=== PATIENT | female | born 1990 | race American Indian/Alaskan Native ===

== ENCOUNTER 2016-12-26 09:42 | Emergency (ER) | payer SELFPAY ==
--- NOTE | 2016-12-26 09:52 | Emergency Department Report ---
Chief Complaint: Urogenital-Female Stated Complaint: POSS UTI Time Seen by Provider: 12/26/16 09:49 - HPI History of Present Illness: PT c/o urinary frequency and dysuria x 4 days. - ROS Review of Systems: -fevers -chill - n/v - vaginal discharge - Exam Physical Exam: PT looks well, non toxic. no cva tenderness fernando MSE screening note: Focused history and physical exam performed. Due to findings the following was ordered: labs ED Disposition for MSE Condition: Stable
[2016-12-26 10:20] VITALS: BP 126/85
[2016-12-26 10:35] LABS: Bacteria,Urine 2+ /HPF (Negative); Bilirubin,Urine NEG (Negative); Blood,Urine MOD (Negative); Ketones,Urine NEG (Negative); Leukocyte Esterase,Urine LG (Negative); Mucus,Urine FEW /HPF; Nitrite,Urine NEG (Negative); Protein,Urine <15 mg/dL mg/dL (Negative); Urobilinogen,Urine < 2.0 mg/dL (<2.0)
--- NOTE | 2016-12-26 18:26 | Emergency Department Report ---
Entered by BRIE LOPEZ, acting as scribe for RUBY HARRINGTON NP. ED Female HPI - General Chief complaint: Urogenital-Female Stated complaint: POSS UTI Time Seen by Provider: 12/26/16 09:49 Source: patient Mode of arrival: Ambulatory Limitations: No Limitations - History of Present Illness Initial comments: This is a 26 y/o female nontoxic, well nourished in appearance, no acute signs of distress presents with urgency and dysuria that started 4 days ago. Sx includes feeling of inability to empty bladder but pt denies fever, back pain, pelvic pain, chills, n/v, vaginal discharge, VIVAR, chest pain, SOB, numbness or tingling. Pt states she took antibiotics for UTI 3 years ago. Pt has no concerns of STD exposure. MD Complaint: dysuria, other (urgency) -: days(s) (4) Severity: mild Severity scale (0 -10): 4 Quality: burning Consistency: constant Improves with: none Worsens with: urination Are you Now?: No Last Menstrual Period: 12/10/16 EDC: 09/16/17 Associated Symptoms: denies other symptoms, dysuria. denies: vaginal discharge , vaginal bleeding, abdominal pain, nausea/vomiting, fever/chills, headaches, loss of appetite, hematuria, rash, seizure, shortness of breath, syncope, weakness - Related Data Sexually active: No (as per pt) Home Medications Medication Instructions Recorded Confirmed Last Taken risperiDONE mg PO QHS 08/22/14 08/22/14 08/21/14 21:00 Previous Rx's Medication Instructions Recorded Last Taken Type medroxyPROGESTERone ACETATE 10 mg PO QDAY #10 tablet 08/22/14 Unknown Rx [Provera] Gentamicin 0.3% Ophth Soln 2 drops OP Q4H #1 bottle 03/22/15 Unknown Rx Ibuprofen [Motrin] 600 mg PO Q8H PRN #30 tablet 03/22/15 Unknown Rx Sulfamethoxazole/Trimethoprim 1 each PO BID #6 tablet 03/22/15 Unknown Rx [Bactrim DS TAB] Nitrofurantoin Claiborne/M-Cryst 100 mg PO Q12HR #10 capsule 12/26/16 Unknown Rx [Macrobid CAP] Allergies Allergy/AdvReac Type Severity Reaction Status Date / Time No Known Allergies Allergy Verified 08/22/14 12:04 ED Review of Systems Comment: All other systems reviewed and negative Constitutional: denies: chills, fever Eyes: denies: eye pain, eye discharge, vision change ENT: denies: ear pain, throat pain Respiratory: denies: cough, shortness of breath Cardiovascular: denies: chest pain Endocrine: no symptoms reported Gastrointestinal: denies: abdominal pain, nausea, vomiting, diarrhea Genitourinary: urgency, dysuria, hematuria, other (feeling of inability to empty bladder) Musculoskeletal: denies: back pain, joint swelling, arthralgia Skin: denies: rash, lesions Neurological: denies: headache, weakness, numbness ED Past Medical Hx - Past Medical History Previous Medical History?: Yes Hx Psychiatric Treatment: Yes (Hospitalized at [facility] in 2012.) Additional medical history: BIPOLAR - Surgical History Past Surgical History?: No - Social History Smoking Status: Current Some Day Smoker Substance Use Type: Alcohol - Medications Home Medications: Home Medications Medication Instructions Recorded Confirmed Last Taken Type medroxyPROGESTERone ACETATE 10 mg PO QDAY #10 tablet 08/22/14 Unknown Rx [Provera] risperiDONE mg PO QHS 08/22/14 08/22/14 08/21/14 21:00 History Gentamicin 0.3% Ophth Soln 2 drops OP Q4H #1 bottle 03/22/15 Unknown Rx Ibuprofen [Motrin] 600 mg PO Q8H PRN #30 tablet 03/22/15 Unknown Rx Sulfamethoxazole/Trimethoprim 1 each PO BID #6 tablet 03/22/15 Unknown Rx [Bactrim DS TAB] Nitrofurantoin Claiborne/M-Cryst 100 mg PO Q12HR #10 capsule 12/26/16 Unknown Rx [Macrobid CAP] ED Physical Exam - General Limitations: No Limitations General appearance: alert, in no apparent distress - Head Head exam: Present: atraumatic, normocephalic - Eye Eye exam: Present: normal appearance, PERRL, EOMI Pupils: Present: normal accommodation - ENT ENT exam: Present: normal exam, normal orophraynx, mucous membranes moist, TM's normal bilaterally, normal external ear exam - Neck Neck exam: Present: normal inspection, full ROM. Absent: tenderness, meningismus, lymphadenopathy, thyromegaly - Respiratory Respiratory exam: Present: normal lung sounds bilaterally. Absent: respiratory distress, wheezes, rales, rhonchi, stridor - Cardiovascular Cardiovascular Exam: Present: regular rate, normal rhythm, normal heart sounds. Absent: systolic murmur, diastolic murmur, rubs, gallop - GI/Abdominal GI/Abdominal exam: Present: soft, normal bowel sounds. Absent: distended, tenderness, guarding, rebound, diminished bowel sounds, mass, bruit - Extremities Exam Extremities exam: Present: normal inspection, full ROM, normal capillary refill. Absent: tenderness, pedal edema, joint swelling, calf tenderness - Back Exam Back exam: Present: normal inspection, full ROM. Absent: tenderness, CVA tenderness (R), CVA tenderness (L), muscle spasm, paraspinal tenderness, vertebral tenderness, rash noted - Neurological Exam Neurological exam: Present: alert, oriented X3, CN II-XII intact, normal gait, reflexes normal. Absent: motor sensory deficit - Psychiatric Psychiatric exam: Present: normal affect, normal mood - Skin Skin exam: Present: warm, dry, intact, normal color. Absent: rash ED Course Vital Signs 12/26/16 12/26/16 12/26/16 09:49 10:19 10:20 Temperature 98.3 F 98.1 F Pulse Rate 83 78 Respiratory 16 16 16 Rate Blood Pressure 131/90 Blood Pressure 126/85 [Left] O2 Sat by Pulse 100 100 100 Oximetry ED Medical Decision Making - Medical Decision Making Ed course: This is a 26-year-old female that presents with UTI 1- after my physical exam, UA and test has been obtained. UA indicates elevated WBCs with moderate signs of blood. 2- patient received Macrobid for 5 days and was instructed to finish full course of antibiotics as as prescribed. 3- at time time of discharge, the patient does not seem toxic or ill in appearance. No acute signs of distress noted. Patient agrees to discharge treatment plan of care. No further questions noted by the patient. 4- patient was notified to follow-up with her primary care doctor in 3-5 days or if symptoms worsen and continue report back to emergency room as soon as possible. ED Disposition Disposition: DC-01 TO HOME OR SELFCARE Is pt being admited?: No Does the pt Need Aspirin: No Condition: Stable Instructions: Nitrofurantoin Macrocrystals (By mouth), Urinary Tract Infection in Women (ED), Dysuria (ED) Additional Instructions: follow-up with her primary care doctor in 3-5 days or if symptoms worsen and continue report back to emergency room as soon as possible. Finish full courses of antibiotics as prescribed. Prescriptions: Nitrofurantoin Claiborne/M-Cryst [Macrobid CAP] 100 mg PO Q12HR #10 capsule Referrals: PRIMARY CARE, [Primary Care Provider] - 3-5 Days [facility] [Outside] - 3-5 Days [facility] [Outside] - 3-5 Days Forms: Work/School Release Form(ED) This documentation as recorded by the JESSICA purcell RYAN,accurately reflects the service I personally performed and the decisions made by me,RUBY HARRINGTON, BUILDING [employer]STRUCTION IRONWORKER.
== END 2016-12-26 11:14 | disposition home or self-care (01) ==
LOC: ED 09:42
DX: R30.0 Dysuria (principal); F31.9 Bipolar disorder, unspecified; Z72.0 Tobacco use
CPT/HCPCS: 81001; 81025; 99283

== ENCOUNTER 2017-03-06 11:49 | Emergency (ER) | payer MEDICAID ==
[2017-03-06 12:30] VITALS: BP 131/95
--- NOTE | 2017-03-06 21:44 | Emergency Department Report ---
Entered by ERNESTO FONSECA, acting as scribe for RUBY HARRINGTON NP. ED Neck Pain/Injury HPI - General Chief Complaint: Neck Pain/Injury Stated Complaint: LEFT EAR/NECK PAIN Time Seen by Provider: 03/06/17 12:42 Mode of arrival: Ambulatory Limitations: No Limitations - History of Present Illness Initial Comments: This is a 26 y/o female that is with a PMHx of bipolar disorder presents to the ED c/o lateral left neck pain that began 4 days ago. Rates pain a 7/10 in severity, which she describes as aching in quality. Aggravated with swallowing and movement, and alleviated with nothing. Associated sore throat, but she denies hearing loss, fever, chills, chest pain, SOB, VIVAR or dizziness, numbness, tingling. LMP 01/09/2017. Patient states she is following up with an OB to find out how many weeks she is today. Denies any abdominal pain, cramping, vaginal bleeding, and vaginal discharge. NKDA. HAHN Complaint: neck pain Onset/Timin -: days(s) Place: home Severity: moderate Severity scale (0 -10): 7 Quality: aching Consistency: constant Improves With: immobilization Worsens With: movement of neck Context: unknown Associated Symptoms: none, other (sore throat). denies: headache, fever, numbness, tingling, weakness, vertigo, difficulty walking, swollen glands, difficulty swallowing, nausea, vomiting Treatments Prior to Arrival: none - Related Data Home Medications Medication Instructions Recorded Confirmed Last Taken risperiDONE mg PO QHS 08/22/14 08/22/14 08/21/14 21:00 Previous Rx's Medication Instructions Recorded Last Taken Type medroxyPROGESTERone ACETATE 10 mg PO QDAY #10 tablet 08/22/14 Unknown Rx [Provera] Gentamicin 0.3% Ophth Soln 2 drops OP Q4H #1 bottle 03/22/15 Unknown Rx Ibuprofen [Motrin] 600 mg PO Q8H PRN #30 tablet 03/22/15 Unknown Rx Sulfamethoxazole/Trimethoprim 1 each PO BID #6 tablet 03/22/15 Unknown Rx [Bactrim DS TAB] Nitrofurantoin Bowman/M-Cryst 100 mg PO Q12HR #10 capsule 12/26/16 Unknown Rx [Macrobid CAP] Amoxicillin 500 mg PO BID #20 capsule 03/06/17 Unknown Rx Allergies Allergy/AdvReac Type Severity Reaction Status Date / Time No Known Allergies Allergy Verified 08/22/14 12:04 ED Review of Systems Comment: All other systems reviewed and negative Constitutional: denies: chills, diaphoresis, fever, weakness Eyes: denies: eye pain, eye discharge, vision change ENT: throat pain. denies: ear pain, dental pain, hearing loss, epistaxis, congestion Respiratory: denies: cough, orthopnea, shortness of breath, SOB with exertion, SOB at rest, stridor, wheezing Cardiovascular: denies: chest pain, palpitations, dyspnea on exertion, orthopnea , edema, syncope, paroxysmal nocturnal dyspnea Endocrine: no symptoms reported Gastrointestinal: denies: abdominal pain, nausea, vomiting, diarrhea Genitourinary: denies: urgency, dysuria, frequency, hematuria, discharge, abnormal menses, dyspareunia Musculoskeletal: arthralgia (lateral left neck pain). denies: back pain, joint swelling, myalgia Skin: denies: rash, lesions Neurological: denies: headache, weakness, numbness, paresthesias Psychiatric: denies: anxiety, depression Hematological/Lymphatic: denies: easy bleeding, easy bruising ED Past Medical Hx - Past Medical History Previous Medical History?: Yes Hx Psychiatric Treatment: Yes (Hospitalized at [facility] in 2012.) Additional medical history: BIPOLAR - Surgical History Past Surgical History?: No - Family History Family history: no significant - Social History Smoking Status: Never Smoker Substance Use Type: None - Medications Home Medications: Home Medications Medication Instructions Recorded Confirmed Last Taken Type medroxyPROGESTERone ACETATE 10 mg PO QDAY #10 tablet 08/22/14 Unknown Rx [Provera] risperiDONE mg PO QHS 08/22/14 08/22/14 08/21/14 21:00 History Gentamicin 0.3% Ophth Soln 2 drops OP Q4H #1 bottle 03/22/15 Unknown Rx Ibuprofen [Motrin] 600 mg PO Q8H PRN #30 tablet 03/22/15 Unknown Rx Sulfamethoxazole/Trimethoprim 1 each PO BID #6 tablet 03/22/15 Unknown Rx [Bactrim DS TAB] Nitrofurantoin Bowman/M-Cryst 100 mg PO Q12HR #10 capsule 12/26/16 Unknown Rx [Macrobid CAP] Amoxicillin 500 mg PO BID #20 capsule 03/06/17 Unknown Rx ED Physical Exam - General Limitations: No Limitations General appearance: alert, in no apparent distress - Head Head exam: Present: atraumatic, normocephalic - Eye Eye exam: Present: normal appearance, PERRL, EOMI. Absent: scleral icterus, conjunctival injection, nystagmus, periorbital swelling, periorbital tenderness Pupils: Present: normal accommodation - ENT ENT exam: Present: mucous membranes moist, TM's normal bilaterally, normal external ear exam, other (no left mastoid tenderness present). Absent: normal exam, normal orophraynx - Expanded ENT Exam Expanded Ear exam: Present: normal external inspection Mouth exam: Present: normal external inspection, tongue normal. Absent: drooling, trismus, muffled voice, tongue elevation, laceration Teeth exam: Present: normal inspection Throat exam: Positive: normal inspection, tonsillomegaly (2+), tonsillar exudate (left sided), other (tonsillar lymph node on the left side. Uvula midline. No abscess or swelling tonsil noted. ). Negative: tonsillar erythema, R peritonsillar mass, L peritonsillar mass - Neck Neck exam: Present: normal inspection, full ROM. Absent: tenderness, meningismus, lymphadenopathy, thyromegaly - Expanded Neck Exam Expanded Neck exam: Absent: tenderness, midline deformity, anterior neck swelling, thyroid mass, carotid bruit, tracheal deviation - Respiratory Respiratory exam: Present: normal lung sounds bilaterally. Absent: respiratory distress, wheezes, rales, rhonchi, stridor, accessory muscle use, decreased breath sounds - Cardiovascular Cardiovascular Exam: Present: regular rate, normal rhythm, normal heart sounds. Absent: systolic murmur, diastolic murmur, rubs, gallop - GI/Abdominal GI/Abdominal exam: Present: soft, normal bowel sounds. Absent: distended - Rectal Rectal exam: Present: deferred - Extremities Exam Extremities exam: Present: normal inspection, full ROM, normal capillary refill. Absent: tenderness, pedal edema, joint swelling, calf tenderness - Back Exam Back exam: Present: normal inspection, full ROM. Absent: tenderness, CVA tenderness (R), CVA tenderness (L), muscle spasm, paraspinal tenderness, vertebral tenderness, rash noted - Neurological Exam Neurological exam: Present: alert, oriented X3, CN II-XII intact, normal gait, reflexes normal. Absent: motor sensory deficit - Psychiatric Psychiatric exam: Present: normal affect, normal mood - Skin Skin exam: Present: warm, dry, intact. Absent: rash, cyanosis, abrasion, ecchymosis ED Course Vital Signs 03/06/17 12:28 Temperature 98.9 F Pulse Rate 85 Respiratory 16 Rate Blood Pressure 131/95 O2 Sat by Pulse 100 Oximetry - Reevaluation(s) Reevaluation #1: 03/06/17 13:40 Patient is speaking in full sentences with no signs of distress noted. ED Disposition Clinical Impression: Tonsillitis with exudate Disposition: - TO HOME OR SELFCARE Is pt being admited?: No Does the pt Need Aspirin: No Condition: Stable Instructions: Tonsillitis (ED), Amoxicillin (By mouth) Additional Instructions: Follow-up with a primary care doctor in 3-5 days or if symptoms worsen return to the emergency department as soon as possible Prescriptions: Amoxicillin 500 mg PO BID #20 capsule Referrals: PRIMARY CAREMD [Primary Care Provider] - 3-5 Days SONY MCCARTHY MD [Staff Physician] - 3-5 Days [facility] [Outside] - 3-5 Days [facility] [Outside] - 3-5 Days Forms: Work/School Release Form(ED) This documentation as recorded by the MARIAN purcell JASMINE,accurately reflects the service I personally performed and the decisions made by me,RUBY HARRINGTON, YUDITH.
== END 2017-03-06 13:52 | disposition home or self-care (01) ==
LOC: ED 11:49
DX: J03.90 Acute tonsillitis, unspecified (principal); F31.9 Bipolar disorder, unspecified
CPT/HCPCS: 99281

== ENCOUNTER 2017-03-21 19:01 | Emergency (ER) | payer MEDICAID ==
[2017-03-21 19:14] VITALS: BP 122/85
[2017-03-21 19:27] LABS: Hematocrit 35.9 % (30.3-42.9); Hemoglobin 12.1 gm/dl (10.1-14.3); Mean Corpuscular HGB Conc 34 % (30-34); Mean Corpuscular Hemoglobin 30 pg (28-32); Mean Corpuscular Volume 88 fl (79-97); Platelet Count 268 K/mm3 (140-440); White Blood Count 11.5 K/mm3 (4.5-11.0)
[2017-03-21 19:44] LABS: Anion Gap 18 mmol/L; BUN/Creatinine Ratio 18.33; Blood Urea Nitrogen 11 mg/dL (7-17); Calcium 9.2 mg/dL (8.4-10.2); Carbon Dioxide 22 mmol/L (22-30); Chloride 99.5 mmol/L (98-107); Glucose 88 mg/dL (65-100); Potassium 3.9 mmol/L (3.6-5.0); Sodium 136 mmol/L (137-145)
[2017-03-21 21:12] LABS: Bilirubin,Urine NEG (Negative); Blood,Urine NEG (Negative); Ketones,Urine 20 mg/dL (Negative); Leukocyte Esterase,Urine TR (Negative); Mucus,Urine FEW /HPF; Nitrite,Urine NEG (Negative); Protein,Urine <15 mg/dL mg/dL (Negative); Sperm,Urine FEW /HPF (NP); Urobilinogen,Urine < 2.0 mg/dL (<2.0)
--- NOTE | 2017-03-21 22:12 | Ultrasound Report ---
FINAL REPORT PROCEDURE: US OB LESS THAN 14 WEEKS FETUS TECHNIQUE: Real-time transabdominal l sonography of the uterus, placenta, amniotic fluid, adnexa, and fetus was performed with image documentation. Measurements were obtained to determine age/size. M-mode Doppler was used to document heartbeat. HISTORY: vag bleed/pain with COMPARISON: No prior studies are available for comparison. FINDINGS: CRL: 71mm, which corresponds to a gestational age of: 13weeks, 2 days. Yolk Sac: Normal. Embryonic Cardiac Activity: 162 beats per minute Gestational Sac: Normal. Right Ovary: Not identified. Obscured by bowel gas. Left Ovary: Normal. Estimated delivery date: 09/24/2017 Comment: Complete anatomic survey at 18-20 weeks suggested. IMPRESSION: 1. Single living intrauterine gestation at approximately 13 weeks and 2 days 2. EDC by US 09/24/2017.
--- NOTE | 2017-03-21 22:12 | Ultrasound Report ---
FINAL REPORT PROCEDURE: US OB TRANSVAGINAL TECHNIQUE: Real-time transvaginal sonography of the uterus, placenta, amniotic fluid, adnexa, and fetus was performed with image documentation. Measurements were obtained to determine age/size. M-mode Doppler was used to document heartbeat. CPT 15143 HISTORY: vag bleed/pain with COMPARISON: No prior studies are available for comparison. FINDINGS: CRL: 71mm, which corresponds to a gestational age of: 13weeks, 2 days. Yolk Sac: Normal. Embryonic Cardiac Activity: 162 beats per minute Gestational Sac: Normal. Right Ovary: Not identified. Obscured by bowel gas. Left Ovary: Normal. Estimated delivery date: 09/24/2017 Comment: Complete anatomic survey at 18-20 weeks suggested. IMPRESSION: 1. Single living intrauterine gestation at approximately 13 weeks and 2 days 2. EDC by US 09/24/2017.
--- NOTE | 2017-03-24 00:44 | ED Elopement Review ---
ED Pt Elopement review - Results review Lab results: Laboratory Tests 03/21/17 03/21/17 03/21/17 19:19 19:19 19:19 WBC 11.5 H RBC 4.10 Hgb 12.1 Hct 35.9 MCV 88 MCH 30 MCHC 34 RDW 13.0 L Plt Count 268 Sodium 136 L Potassium 3.9 Chloride 99.5 Carbon Dioxide 22 Anion Gap 18 BUN 11 Creatinine 0.6 L Estimated GFR > 60 BUN/Creatinine Ratio 18.33 Glucose 88 Calcium 9.2 HCG, Quant 34095 H Urine Color Urine Turbidity Urine pH Ur Specific Comfrey Urine Protein Urine Glucose (UA) Urine Ketones Urine Blood Urine Nitrite Urine Bilirubin Urine Urobilinogen Ur Leukocyte Esterase Urine WBC (Auto) Urine RBC (Auto) U Epithel Cells (Auto) Urine Mucus Urine Sperm Blood Type 03/21/17 03/21/17 19:19 20:30 WBC RBC Hgb Hct MCV MCH MCHC RDW Plt Count Sodium Potassium Chloride Carbon Dioxide Anion Gap BUN Creatinine Estimated GFR BUN/Creatinine Ratio Glucose Calcium HCG, Quant Urine Color Yellow Urine Turbidity Clear Urine pH 5.0 Ur Specific Comfrey 1.027 Urine Protein <15 mg/dl Urine Glucose (UA) Neg Urine Ketones 20 Urine Blood Neg Urine Nitrite Neg Urine Bilirubin Neg Urine Urobilinogen < 2.0 Ur Leukocyte Esterase Tr Urine WBC (Auto) 2.0 Urine RBC (Auto) 3.0 U Epithel Cells (Auto) 17.0 H Urine Mucus Few Urine Sperm Few Blood Type A POSITIVE - Call Back decision Pt Call Back Decision: No action required
== END 2017-03-21 23:10 | disposition left against medical advice (07) ==
LOC: ED 19:01
DX: O26.851 Spotting complicating pregnancy, first trimester (principal); Z53.21 Procedure and treatment not carried out due to patient leaving prior to being seen by health care provider
CPT/HCPCS: 36415; 76801; 76817; 80048; 81001; 84702; 85027; 86900; 86901

== ENCOUNTER 2017-03-23 17:24 | Emergency (ER) | payer MEDICAID ==
--- NOTE | 2017-03-23 20:07 | Emergency Department Report ---
ED Female HPI - General Chief complaint: Medical Clearance Stated complaint: 13 WEEKS PREGNENT SPOTTING, VAGINAL IRRITATION Time Seen by Provider: 03/23/17 19:43 Source: patient Mode of arrival: Ambulatory Limitations: No Limitations - History of Present Illness Initial comments: 26-year-old female past medical history bipolar, LMP 01/09/17 presents for request of ultrasound and blood work results and urine results which were done 48 hours ago in the ED here. Patient states she came because she had some vaginal spotting but left before she was able to receive results. Patient denies fevers chills nausea vomiting states she has no dysuria no abdominal pain no flank pain. Denies any vaginal discharge. States that vaginal spotting spontaneously resolve the same day that she came to the ED. Has not had any spotting or lower abdominal crampy pain since then. Patient states she is simply requesting her results and wanted to know if her ultrasound was normal. Patient states she follows up with an [facility] at [facility] in [place]. Radiation: suprapubic Severity: mild Consistency: constant Improves with: none Worsens with: none Are you Now?: No - Related Data Sexually active: Yes Para: 0 Home Medications Medication Instructions Recorded Confirmed Last Taken risperiDONE mg PO QHS 08/22/14 08/22/14 08/21/14 21:00 Previous Rx's Medication Instructions Recorded Last Taken Type medroxyPROGESTERone ACETATE 10 mg PO QDAY #10 tablet 08/22/14 Unknown Rx [Provera] Gentamicin 0.3% Ophth Soln 2 drops OP Q4H #1 bottle 03/22/15 Unknown Rx Ibuprofen [Motrin] 600 mg PO Q8H PRN #30 tablet 03/22/15 Unknown Rx Sulfamethoxazole/Trimethoprim 1 each PO BID #6 tablet 03/22/15 Unknown Rx [Bactrim DS TAB] Nitrofurantoin Angelina/M-Cryst 100 mg PO Q12HR #10 capsule 12/26/16 Unknown Rx [Macrobid CAP] Amoxicillin 500 mg PO BID #20 capsule 03/06/17 Unknown Rx Allergies Allergy/AdvReac Type Severity Reaction Status Date / Time No Known Allergies Allergy Verified 03/23/17 17:33 ED Review of Systems ROS: Stated complaint: 13 WEEKS PREGNENT SPOTTING, VAGINAL IRRITATION Other details as noted in HPI Constitutional: denies: chills, fever Eyes: denies: eye pain, eye discharge, vision change ENT: denies: ear pain, throat pain Respiratory: denies: cough, shortness of breath, wheezing Cardiovascular: denies: chest pain, palpitations Endocrine: no symptoms reported Gastrointestinal: denies: abdominal pain, nausea, diarrhea Genitourinary: denies: urgency, dysuria, discharge Musculoskeletal: denies: back pain, joint swelling, arthralgia Skin: denies: rash, lesions Neurological: denies: headache, weakness, paresthesias Psychiatric: denies: anxiety, depression Hematological/Lymphatic: denies: easy bleeding, easy bruising ED Past Medical Hx - Past Medical History Previous Medical History?: No Hx Psychiatric Treatment: Yes (Hospitalized at [facility] in 2012.) Additional medical history: BIPOLAR - Surgical History Past Surgical History?: No - Social History Smoking Status: Never Smoker Substance Use Type: None - Medications Home Medications: Home Medications Medication Instructions Recorded Confirmed Last Taken Type medroxyPROGESTERone ACETATE 10 mg PO QDAY #10 tablet 08/22/14 Unknown Rx [Provera] risperiDONE mg PO QHS 08/22/14 08/22/14 08/21/14 21:00 History Gentamicin 0.3% Ophth Soln 2 drops OP Q4H #1 bottle 03/22/15 Unknown Rx Ibuprofen [Motrin] 600 mg PO Q8H PRN #30 tablet 03/22/15 Unknown Rx Sulfamethoxazole/Trimethoprim 1 each PO BID #6 tablet 03/22/15 Unknown Rx [Bactrim DS TAB] Nitrofurantoin Angelina/M-Cryst 100 mg PO Q12HR #10 capsule 12/26/16 Unknown Rx [Macrobid CAP] Amoxicillin 500 mg PO BID #20 capsule 03/06/17 Unknown Rx ED Physical Exam - General Limitations: No Limitations General appearance: alert, in no apparent distress - Head Head exam: Present: atraumatic, normocephalic - Eye Eye exam: Present: normal appearance, PERRL, EOMI - ENT ENT exam: Present: mucous membranes moist - Neck Neck exam: Present: normal inspection, full ROM - Respiratory Respiratory exam: Present: normal lung sounds bilaterally. Absent: respiratory distress - Cardiovascular Cardiovascular Exam: Present: regular rate, normal rhythm. Absent: systolic murmur, diastolic murmur, rubs, gallop - GI/Abdominal GI/Abdominal exam: Present: soft, normal bowel sounds - External exam: Present: normal external exam Speculum exam: Present: normal speculum exam Bi-manual exam: Present: normal bi-manual exam - Extremities Exam Extremities exam: Present: normal inspection - Back Exam Back exam: Present: normal inspection - Neurological Exam Neurological exam: Present: alert, oriented X3, CN II-XII intact, normal gait - Psychiatric Psychiatric exam: Present: normal affect, normal mood - Skin Skin exam: Present: warm, dry, intact, normal color. Absent: rash ED Course Vital Signs 03/23/17 17:33 Temperature 98.6 F Pulse Rate 91 H Respiratory 20 Rate Blood Pressure 153/74 O2 Sat by Pulse 100 Oximetry ED Medical Decision Making - Medical Decision Making A/P: , vaginal spotting, threatened miscarriage 1-ultrasound shows live IUP at 13 weeks, UA unremarkable, labs unremarkable, hCG level 35,000s 2-blood type A positive, no need for [place] 3-pt states she has follow-up with [facility] on 03/[facility] 4-patient has no current symptoms no current pain and no current bleeding 5- I explained to patient that intermittent spotting during first trimester is or can be normal or can signal a possible threatened miscarriage. I advised patient to return to the ED for any crampy lower abdominal pain vaginal bleeding or passage of clots/tissue nausea vomiting fever chills. Patient stated she understood my instructions Critical care attestation.: If time is entered above; I have spent that time in minutes in the direct care of this critically ill patient, excluding procedure time. ED Disposition Clinical Impression: Vaginal bleeding in Qualifiers: Weeks of gestation: 13 weeks Qualified Code(s): Z3A.13 - 13 weeks gestation of Disposition: DC-01 TO HOME OR SELFCARE Is pt being admited?: No Does the pt Need Aspirin: No Condition: Stable Instructions: Threatened Miscarriage (ED), (ED) Referrals: [facility] [Provider Group] - 3-5 Days [facility] [Provider Group] - 3-5 Days Forms: Accompanied Note, Work/School Release Form(ED) Time of Disposition: 20:09
[2017-03-23 20:20] VITALS: BP 121/79
== END 2017-03-23 20:20 | disposition home or self-care (01) ==
LOC: ED 17:24
DX: O20.9 Hemorrhage in early pregnancy, unspecified (principal); F31.9 Bipolar disorder, unspecified; Z3A.13 13 weeks gestation of pregnancy
CPT/HCPCS: 99283

== ENCOUNTER 2017-09-21 20:15 | Inpatient (IN) | payer MEDICAID ==
[2017-09-21] MEDS ORDERED: CERVIDIL VG ONE (22:15)
[2017-09-21] MEDS ORDERED: NORMOSOL-R PH 7.4 1,000 ML IV ONE (22:15)
[2017-09-21 22:43] LABS: Hematocrit 38.7 % (30.3-42.9); Hemoglobin 13.4 gm/dl (10.1-14.3); Mean Corpuscular HGB Conc 35 % (30-34); Mean Corpuscular Hemoglobin 31 pg (28-32); Mean Corpuscular Volume 88 fl (79-97); Platelet Count 251 K/mm3 (140-440); Red Blood Count 4.38 M/mm3 (3.65-5.03); Red Cell Distribution Width 13.5 % (13.2-15.2)
[2017-09-22] MEDS ORDERED: XYLOCAINE 2% INFILTRATI ONE (07:04)
[2017-09-22] MEDS ORDERED: ePHEDrine SULFATE IV PRN (07:04)
[2017-09-22] MEDS ORDERED: BRETHINE IVP PRN (07:04)
[2017-09-22] MEDS ORDERED: ZOFRAN IV PRN (07:04)
[2017-09-22] MEDS ORDERED: BRETHINE SUB-Q PRN (07:04)
--- NOTE | 2017-09-22 07:04 | History and Physical Report ---
History of Present Illness Date of examination: 09/22/17 Date of admission: 09/21/17 20:15 Chief complaint: Induction of Labor History of present illness: 26-year-old at ~ 39 weeks presents for induction of labor, she is a [employer] WORK[employer] position. course uncomplicated per patient, she is GBS negative. Patient being induced for suspected macrosomia. She is obese She presented last night and Cervidil has been placed Past History Past Medical History: no pertinent history Past Surgical History: no surgical history [employer] History: denies: chlamydia, gonorrhea, hepatitis B, hepatitis C, herpes, HIV , trichomonas Social history: single, full code. denies: smoking, alcohol abuse, prescription drug abuse, IV drug use - Obstetrical History Expected Date of Delivery: 09/26/17 Actual Gestation: 39 Week(s) 3 Day(s) : 1 Para: 0 Medications and Allergies Allergies Allergy/AdvReac Type Severity Reaction Status Date / Time No Known Allergies Allergy Verified 03/23/17 17:33 Home Medications Medication Instructions Recorded Confirmed Last Taken Type medroxyPROGESTERone ACETATE 10 mg PO QDAY #10 tablet 08/22/14 Unknown Rx [Provera] risperiDONE mg PO QHS 08/22/14 08/22/14 08/21/14 21:00 History Gentamicin 0.3% Ophth Soln 2 drops OP Q4H #1 bottle 03/22/15 Unknown Rx Ibuprofen [Motrin] 600 mg PO Q8H PRN #30 tablet 03/22/15 Unknown Rx Sulfamethoxazole/Trimethoprim 1 each PO BID #6 tablet 03/22/15 Unknown Rx [Bactrim DS TAB] Nitrofurantoin [place]/M-Cryst 100 mg PO Q12HR #10 capsule 12/26/16 Unknown Rx [Macrobid CAP] Amoxicillin 500 mg PO BID #20 capsule 03/06/17 Unknown Rx Active Meds: Active Medications Parenteral Electrolytes (Normosol-R Ph 7.4) 1,000 mls @ 125 mls/hr IV DIRECT KEILA Review of Systems Constitutional: no fever, no chills, no fatigue, no lethargy Cardiovascular: no chest pain, no syncope, no lightheadedness, no shortness of breath, no dyspnea on exertion, no high blood pressure Respiratory: no cough, no cough with sputum, no shortness of breath, no dyspnea on exertion Gastrointestinal: no abdominal pain, no nausea, no vomiting Genitourinary: no vaginal bleeding, no vaginal discharge, no leakage of fluid, no contractions - Vital Signs Vital signs: Vital Signs Temp Pulse Resp BP 98.4 F 99 H 18 122/72 09/21/17 21:21 09/21/17 21:21 09/21/17 21:21 09/21/17 21:21 Temp Pulse Resp BP Pulse Ox 97.5 F L 105 H 18 117/73 95 09/22/17 06:20 09/22/17 06:20 09/22/17 06:20 09/22/17 06:20 09/22/17 06:20 - Physical Exam Abdomen: Positive: normal appearance, soft. Negative: distention, tenderness, guarding, rigidity Genitourinary (Female): Positive: normal external genitalia Uterus: Positive: enlarged (~ 3900) Adnexa: both: normal Extremities: Positive: normal - Obstetrical FHR: category 1 Cervical Dilatation: 0 (per RN) Results Result Diagrams: 09/21/17 21:55 Abnormal lab results 09/21/17 Range/Units 21:55 MCHC 35 H (30-34) % All other labs normal. Assessment and Plan A: 26-year-old at 39+3 weeks here for induction of labor -Cat 1 tracing P: -Admit -Routine labs -Cervidil placed last night -Continue routine induction protocol - Patient Problems (1) 39 weeks gestation of Current Visit: Yes Status: Acute
[2017-09-22] MEDS ORDERED: PITOCin/NS 30 UNIT/500ML 30 UNITS/500 ML BAG IV SCH (08:00)
[2017-09-22] MEDS ORDERED: PITOCin/NS 20 UNIT/1000ML DRIP 20 UNITS/1,000 ML BAG IV SCH (08:00)
[2017-09-22] MEDS ORDERED: NORMOSOL-R PH 7.4 1,000 ML IV SCH (08:00)
--- NOTE | 2017-09-22 09:51 | Progress Note ---
Assessment and Plan A: IUP at 39 weeks IOL per APA recommendation for Obesity and suspected macrosomia Category 1 tracing SVE 0/50/-3 P: Repeat cervidil Pt may Shower and eat prior to placement of next cervidil Subjective - Subjective Date of service: 09/22/17 Principal diagnosis: IUP 39wks, suspected macrosomia, IOL Patient reports: movement normal, contractions (Irregular, "very mild"), no new complaints, no loss of fluid, no vaginal bleeding Objective - Vital Signs Vital Signs: Vital Signs - 12hr 09/22/17 09/22/17 06:20 08:16 Temperature 97.5 F L 96.8 F L Pulse Rate 105 H 94 H Respiratory 18 16 Rate Blood Pressure 117/73 110/55 [Right] O2 Sat by Pulse 95 Oximetry - Exam Breasts: deferred Cardiovascular: Regular rate, Normal S1, Normal S2 Lungs: Normal air movement Abdomen: Present: normal appearance (Gravid, Obese), soft Vulva: both: normal Uterus: Present: firm (Gravid, Size greater than dates) FHR: auscultation normal, category 1 Uterine Contraction Monitor Mode: External Cervical Dilatation: 0 (moderate firmness) Cervical Effacement Percentage: 50 station: -3 Uterine Contraction Pattern: Irregular Uterine Tone Measurement Phase: Resting Uterine Contraction Intensity: Mild Extremities: normal Deep Tendon Reflex Grade: Normal +2 - Labs Labs: Abnormal Labs 09/21/17 21:55 MCHC 35 H Laboratory Results - last 24 hr 09/21/17 09/21/17 21:55 21:55 WBC 10.2 RBC 4.38 Hgb 13.4 Hct 38.7 MCV 88 MCH 31 MCHC 35 H RDW 13.5 Plt Count 251 Blood Type A POSITIVE Antibody Screen Negative
[2017-09-22] MEDS ORDERED: CERVIDIL VG NR (10:30)
[2017-09-22] MEDS ORDERED: SUBLIMAZE IV SCH (21:00)
[2017-09-22] MEDS ORDERED: MINERAL OIL PO PRN (22:00)
[2017-09-23] MEDS ORDERED: SUBLIMAZE IV PRN (01:45)
[2017-09-23] MEDS: NORMOSOL-R PH 7.4 1,000 ML IV SCH ×4 (10:34→20:00)
--- NOTE | 2017-09-23 13:02 | Progress Note ---
Assessment and Plan - Patient Problems (1) 39 weeks gestation of Current Visit: Yes Status: Acute (2) Encounter for induction of labor Current Visit: Yes Status: Acute Plan to address problem: Continue routine induction orders Start oxytocin for labor augmentation Anticipate vaginal delivery (3) macrosomia Current Visit: Yes Status: Acute Subjective - Subjective Date of service: 09/23/17 Principal diagnosis: IUP 39wks, suspected macrosomia, IOL Interval history: S/P cervidil for cervical ripening Patient reports: movement normal, contractions (Irregular, "very mild"), no new complaints, no loss of fluid, no vaginal bleeding Objective - Vital Signs Vital Signs: Vital Signs - 12hr 09/23/17 09/23/17 09/23/17 01:03 01:08 01:13 Temperature Pulse Rate 107 H 99 H 98 H Respiratory Rate Blood Pressure Blood Pressure [Right] O2 Sat by Pulse 95 97 97 Oximetry 09/23/17 09/23/17 09/23/17 01:18 01:23 01:28 Temperature Pulse Rate 92 H 109 H 104 H Respiratory Rate Blood Pressure Blood Pressure [Right] O2 Sat by Pulse 99 97 98 Oximetry 09/23/17 09/23/17 09/23/17 01:33 01:34 01:38 Temperature Pulse Rate 98 H 90 101 H Respiratory Rate Blood Pressure 119/75 Blood Pressure [Right] O2 Sat by Pulse 98 97 Oximetry 09/23/17 09/23/17 09/23/17 01:41 01:43 01:48 Temperature Pulse Rate 93 H 83 90 Respiratory Rate Blood Pressure Blood Pressure [Right] O2 Sat by Pulse 94 92 91 Oximetry 09/23/17 09/23/17 09/23/17 01:53 01:58 02:03 Temperature Pulse Rate 83 90 86 Respiratory Rate Blood Pressure Blood Pressure [Right] O2 Sat by Pulse 92 91 89 Oximetry 09/23/17 09/23/17 09/23/17 02:08 02:12 02:13 Temperature Pulse Rate 86 88 90 Respiratory Rate Blood Pressure Blood Pressure [Right] O2 Sat by Pulse 89 93 94 Oximetry 09/23/17 09/23/17 09/23/17 02:18 02:23 02:28 Temperature Pulse Rate 97 H 97 H 102 H Respiratory Rate Blood Pressure Blood Pressure [Right] O2 Sat by Pulse 90 90 91 Oximetry 03/05/0309/23/17 09/23/17 02:29 02:33 02:35 Temperature Pulse Rate 88 94 H 98 H Respiratory Rate Blood Pressure Blood Pressure [Right] O2 Sat by Pulse 94 90 94 Oximetry 09/23/17 09/23/17 09/23/17 02:38 06:38 06:43 Temperature Pulse Rate 98 H 100 H 99 H Respiratory Rate Blood Pressure Blood Pressure [Right] O2 Sat by Pulse 93 95 96 Oximetry 09/23/17 09/23/17 09/23/17 06:44 06:48 07:30 Temperature 96.5 F L Pulse Rate 93 H 94 H 88 Respiratory 16 Rate Blood Pressure Blood Pressure 123/72 [Right] O2 Sat by Pulse 94 93 Oximetry 09/23/17 09/23/17 09/23/17 10:46 10:50 10:51 Temperature 96.9 F L Pulse Rate 99 H 95 H 100 H Respiratory 18 Rate Blood Pressure 132/78 Blood Pressure 132/78 [Right] O2 Sat by Pulse 95 95 Oximetry 09/23/17 09/23/17 09/23/17 10:52 10:55 11:00 Temperature Pulse Rate 100 H 106 H 104 H Respiratory Rate Blood Pressure Blood Pressure [Right] O2 Sat by Pulse 93 92 92 Oximetry 09/23/17 09/23/17 09/23/17 11:05 11:08 11:10 Temperature Pulse Rate 90 96 H 94 H Respiratory Rate Blood Pressure Blood Pressure [Right] O2 Sat by Pulse 92 93 91 Oximetry 09/23/17 09/23/17 09/23/17 11:15 11:20 11:21 Temperature Pulse Rate 92 H 95 H 96 H Respiratory Rate Blood Pressure Blood Pressure [Right] O2 Sat by Pulse 91 91 93 Oximetry 09/23/17 09/23/17 09/23/17 11:25 11:30 11:35 Temperature Pulse Rate 99 H 100 H 104 H Respiratory Rate Blood Pressure Blood Pressure [Right] O2 Sat by Pulse 91 91 95 Oximetry 09/23/17 09/23/17 09/23/17 11:36 11:40 11:41 Temperature Pulse Rate 104 H 99 H 111 H Respiratory Rate Blood Pressure Blood Pressure [Right] O2 Sat by Pulse 94 91 94 Oximetry - Exam Breasts: deferred Cardiovascular: Regular rate, Normal S1, Normal S2, No murmurs Lungs: Clear to auscultation, Normal air movement Abdomen: Present: normal appearance, soft Vulva: both: normal FHR: auscultation normal, category 2 FHR comments: baseline 140, moderate variability, + accels, occasional mild variable decels Uterine Contraction Monitor Mode: External Cervical Dilatation: 3.5 (per RN) Cervical Effacement Percentage: 70 (per RN) station: -2 Uterine Contraction Pattern: Irregular Extremities: normal Deep Tendon Reflex Grade: Normal +2 - Labs Labs: Abnormal Labs 09/21/17 21:55 MCHC 35 H
[2017-09-23] MEDS ORDERED: NARCAN 2 MG/2 ML IV PRN (18:34)
--- NOTE | 2017-09-23 18:34 | Anesthesia Consultation ---
Anesthesia Consult and Med Hx Date of service: 09/23/17 - Airway Anesthetic Teeth Evaluation: Good ROM Head & Neck: Adequate Mental/Hyoid Distance: Adequate Mallampati Class: Class II Intubation Access Assessment: Good - Pulmonary Exam CTA: Yes - Cardiac Exam Cardiac Exam: RRR - Pre-Operative Health Status ASA Pre-Surgery Classification: ASA2 Proposed Anesthetic Plan: Epidural, Spinal - Pulmonary Hx Asthma: No COPD: No Hx Pneumonia: No - Cardiovascular System Hx Hypertension: No - Central Nervous System Hx Seizures: No Hx Psychiatric Problems: Yes (Diagnosed with mental illness in 2012.) - Endocrine Hx Renal Disease: No Hx End Stage Renal Disease: No Hx Hypothyroidism: No Hx Hyperthyroidism: No - Hematic Hx Anemia: No Hx Sickle Cell Disease: No - Other Systems Hx Alcohol Use: Yes (Pt also uses alcohol frequently.) Hx Substance Use: No
[2017-09-23] MEDS ORDERED: fentaNYL-BUPIV 2 MCG/ML-0.125% 200 MCG/100 ML BAG EPIDURAL SCH (19:00)
[2017-09-23] MEDS: ePHEDrine SULFATE IV PRN ×3 (19:21→19:31)
--- NOTE | 2017-09-23 20:02 | Event Note ---
Date: 09/23/17 S: Pt in semi-phillips's position with family members at bedside. Denies pain s/p epidural anesthesia. O: BP 107/59, HR 106 Pitocin @ 16 mu/min FHR: baseline 140, moderate variability, + accels, variable decels Ctxs q2-4mins, palpate strong SVE 7/90/-1/vtx/BBOW AROM @ 19:54, moderate amniotic fluid, light meconium A: 26yo G1 P 0 @ 39 weeks 4 days Category II FHR Active Labor Pain well controlled P: Continue routine labor orders Continue oxytocin Anticipate vaginal delivery
[2017-09-24] MEDS ORDERED: CYTOTEC ONE (03:15)
[2017-09-24] MEDS ORDERED: CYTOTEC PR ONE (03:25)
[2017-09-24] MEDS ORDERED: NORCO 5/325 PO PRN (03:51)
[2017-09-24] MEDS ORDERED: BENADRYL PO PRN (03:51)
[2017-09-24] MEDS ORDERED: PHENERGAN PR PRN (03:51)
[2017-09-24] MEDS ORDERED: MILK OF MAGNESIA PO PRN (03:51)
[2017-09-24] MEDS ORDERED: DULCOLAX PR PRN (03:51)
[2017-09-24] MEDS ORDERED: LANSINOH TP PRN (03:51)
[2017-09-24] MEDS ORDERED: ZOFRAN IV PRN (03:51)
[2017-09-24] MEDS ORDERED: PHENERGAN PO PRN (03:51)
[2017-09-24] MEDS ORDERED: TUCKS PAD TP PRN (03:51)
[2017-09-24] MEDS ORDERED: TYLENOL PO PRN (03:51)
[2017-09-24] MEDS ORDERED: SODIUM CHLORIDE FLUSH SYRINGE 10 ML IV NR (04:00)
--- NOTE | 2017-09-24 04:08 | Procedure Note ---
OB Delivery Note - Delivery Date of Delivery: 09/24/17 (03:08) Surgeon: LEE GUIDRY Estimated blood loss: 500cc - Vaginal Delivery presentation: vertex Delivery position: OA Intrapartum events: meconium (light), mult.variable deceleratio, hemorrhage Delivery induction: cervidil Delivery augmentation: rupture of membranes (AROM @ 19:54), pitocin Delivery monitor: external FHT, external uterine Route of delivery: Delivery placenta: spontaneous (03:12) Delivery cord: nuchal cord (x1), true knot (x1), 3 umbilical vessels Episiotomy: none Delivery laceration: vaginal side wall, other (bilateral periurethral) Delivery repair: vicryl (3-0) Anesthesia: epidural Delivery comments: of a less vigorous 8lbs 2oz term male infant @ 03:08 with NICU/Resp team @ bedside. Nuchal cord x1 noted and reduced after delivery of head. With bulb suction and stimulation baby more vigorous. After 2 mins, Umbilical cord double- clamped and cut by FOB. Placenta spontaneously delivered Ani side presenting @ 03:12. True knot noted. Heavy Lochia noted. Fundal massage and instruction to start IV pitocin given but IV line clogged. Cytotec 800mcg LA administered. IV line flushed by RN and infusion of IV Pitocin bolus initiated. Multiple clots manually removed. Bilateral periurethral and vaginal side wall lacerations noted. Right periurethral laceration repaired using 3-0 vicryl needle under epidural anesthesia. Pt tolerated the procedure well. 300ml of urine straight-catheterized. Moderate to light lochia noted. Fundus F/ML/U-1. Placenta intact. Mom and baby in stable condition. - Infant A at 1 minute: 7 at 5 minutes: 9 Infant Gender: Male (8 lbs 2 oz (3678 g); 20 in)
[2017-09-24] MEDS: MOTRIN PO SCH ×3 (05:39→18:04)
[2017-09-24 06:19] LABS: Hematocrit 29.5 % (30.3-42.9); Hemoglobin 10.3 gm/dl (10.1-14.3)
[2017-09-24] MEDS: FEOSOL PO SCH (12:47)
[2017-09-24] MEDS: PRENATAL VITAMIN PO SCH (12:47)
[2017-09-25] MEDS: MOTRIN PO SCH (02:12)
[2017-09-25] MEDS ORDERED: DEPO-PROVERA (CONTRACEPTION) IM NR (10:30)
--- NOTE | 2017-09-25 10:30 | Progress Note ---
Assessment and Plan A: PP Day #1 Stable P: Follow Routine orders Depo Provera prior to discharge D/C home in the AM RTO in 6 Weeks Subjective - Subjective Date of service: 09/25/17 Principal diagnosis: IUP 39wks, suspected macrosomia, IOL Patient reports: appetite normal, voiding normally, pain well controlled, flatus , ambulating normally Watson: doing well, bottle feeding Objective - Vital Signs Latest vital signs: Vital Signs Temp Pulse Resp BP BP Pulse Ox 09/25/17 08:10 98.1 F 78 18 101/52 09/25/17 07:52 99.1 F 101 H 18 107/57 09/24/17 17:54 97.8 F 113 H 18 100/63 97 Intake and Output 09/24/17 09/25/17 09/25/17 22:59 06:59 14:59 Intake Total 480 240 120 Output Total 800 Balance -320 240 120 Intake: Oral 120 Intake, Free Water 480 240 Output: Urine 800 Void 800 Other: Total, Intake Amount 120 Total, Output Amount 800 # Voids Void 3 2 1 - Exam Breasts: Present: normal Cardiovascular: Present: Regular rate Lungs: Present: Clear to auscultation, Normal air movement Abdomen: Present: normal appearance, soft, normal bowel sounds Uterus: Present: normal, firm, fundal height below umbilicus Extremities: Present: normal
--- NOTE | 2017-09-25 10:31 | Discharge Summary ---
Providers - Providers Date of Admission: 09/21/17 20:15 Date of discharge: 09/26/17 Attending physician: SHAHRAM MAYEN MD Primary care physician: SHAHRAM MAYEN MD Hospitalization Reason for admission: induction of labor Delivery: Episiotomy: none Laceration: vaginal side wall Other procedures: none complications: none Discharge diagnosis: IUP at term delivered [place] baby: male Condition at discharge: Good Disposition: DC-01 TO HOME OR SELFCARE Plan - Provider Discharge Summary Activity: routine, no sex for 6 weeks, no heavy lifting 4 weeks, no strenuous exercise Diet: routine Instructions: routine Additional instructions: [] Smoking cessation referral if applicable(refer to patient education folder for contact #) [] Refer to [facility] Booklet Call your doctor immediately for: * Fever > 100.5 * Heavy vaginal bleeding ( >1 pad per hour) * Severe persistent headache * Shortness of breath * Reddened, hot, painful area to leg or breast * Drainage or odor from incision. * Keep incision clean and dry at all times and follow doctor's instructions regarding bathing/showering - Follow up plan Follow up: SHAHRAM MAYEN MD [Primary Care Provider] - 6 Weeks
[2017-09-25] MEDS: FEOSOL PO SCH ×2 (10:33→22:03)
[2017-09-25] MEDS: PRENATAL VITAMIN PO SCH (10:34)
[2017-09-26] MEDS: MOTRIN PO SCH ×2 (00:52→05:50)
[2017-09-26 08:10] VITALS: BP 100/56
== END 2017-09-26 16:30 | disposition home or self-care (01) | DRG 774 ==
LOC: LD 20:15 → OB 09-24 04:59
PROVIDERS: ADMIT Obstetrics & Gynecology; ATTEND Obstetrics & Gynecology
PROC: 3E0P7VZ Introduction of Hormone into Female Reproductive, Via Natural or Artificial Opening (ICD-10-PCS; 2017-09-22)
PROC: 10E0XZZ Delivery of Products of Conception, External Approach (ICD-10-PCS; principal; 2017-09-24)
PROC: 3E0R3BZ Introduction of Anesthetic Agent into Spinal Canal, Percutaneous Approach (ICD-10-PCS; 2017-09-24)
PROC: 00HU33Z Insertion of Infusion Device into Spinal Canal, Percutaneous Approach (ICD-10-PCS; 2017-09-24)
PROC: 0HQ9XZZ Repair Perineum Skin, External Approach (ICD-10-PCS; 2017-09-24)
DX: O69.81X0 Labor and delivery complicated by cord around neck, without compression, not applicable or unspecified (principal); O72.1 Other immediate postpartum hemorrhage; Z37.0 Single live birth; Z3A.39 39 weeks gestation of pregnancy; O99.314 Alcohol use complicating childbirth; Z72.89 Other problems related to lifestyle; O99.344 Other mental disorders complicating childbirth; O99.214 Obesity complicating childbirth; Z68.41 Body mass index [BMI] 40.0-44.9, adult; E66.9 Obesity, unspecified; O36.63X0 Maternal care for excessive fetal growth, third trimester, not applicable or unspecified; O76 Abnormality in fetal heart rate and rhythm complicating labor and delivery; O77.0 Labor and delivery complicated by meconium in amniotic fluid; O69.2XX0 Labor and delivery complicated by other cord entanglement, with compression, not applicable or unspecified; O70.0 First degree perineal laceration during delivery; O71.82 Other specified trauma to perineum and vulva
CPT/HCPCS: 36415; 59200; 85014; 85018; 85027; 86592; 86850; 86900; 86901; 99211; G0463; J2590; J3010

== ENCOUNTER 2022-02-09 12:46 | Emergency (ER) | payer SELFPAY ==
[2022-02-09 13:41] VITALS: BP 123/83
--- NOTE | 2022-02-09 13:43 | Emergency Department Report ---
Minor Respiratory - HPI Stated Complaint: SORE/SWOLLEN THROAT Time Seen by Provider: 02/09/22 13:39 Duration: 3 Days Pain Location: Throat Severity: mild Minor Respiratory: Yes Sore Throat, Yes Able to Tolerate Fluids, No Rhinorrhea, No Ear Pain, No Cough, No Sick Contacts, No Hemoptysis, No Chest Pain, No Shortness of Breath, No Fever Other History: 31 yo comes to ER co sorethroat. No fever or chills.No cough. ABC intact. VSs ED Review of Systems ROS: Stated complaint: SORE/SWOLLEN THROAT Other details as noted in HPI Comment: All other systems reviewed and negative ED Past Medical Hx - Past Medical History Previous Medical History?: Yes Hx Hypertension: No Hx Congestive Heart Failure: No Hx Diabetes: No Hx Deep Vein Thrombosis: No Hx Renal Disease: No Hx Sickle Cell Disease: No Hx Seizures: No Hx Psychiatric Treatment: Yes (Hospitalized at [facility] in 2012.) Hx Asthma: No Hx COPD: No Hx HIV: No Additional medical history: BIPOLAR - Surgical History Past Surgical History?: No - Family History Family history: no significant - Social History Smoking Status: Former Smoker Substance Use Type: Alcohol - Medications Home Medications: Home Medications Medication Instructions Recorded Confirmed Last Taken Type medroxyPROGESTERone ACETATE 10 mg PO QDAY #10 tablet 08/22/14 09/22/17 Unknown Rx [Provera] risperiDONE 0.5 mg PO QHS 08/22/14 09/24/17 08/21/14 21:00 History Gentamicin 0.3% Ophth Soln 2 drops OP Q4H #1 bottle 03/22/15 09/22/17 Unknown Rx Ibuprofen [Motrin] 600 mg PO Q8H PRN #30 tablet 03/22/15 09/22/17 Unknown Rx Sulfamethoxazole/Trimethoprim 1 each PO BID #6 tablet 03/22/15 09/22/17 Unknown Rx [Bactrim DS TAB] Nitrofurantoin [place]ine/M-Cryst 100 mg PO Q12HR #10 capsule 12/26/16 09/24/17 Unknown Rx [Macrobid CAP] Amoxicillin 500 mg PO BID #20 capsule 03/06/17 09/22/17 Unknown Rx Amoxicillin [Trimox CAP] 500 mg PO BID #20 capsule 02/09/22 Unknown Rx Minor Respiratory Exam - Exam General: Vital signs noted. No distress. Alert and acting appropriately. HEENT: Yes Pharyngeal Exudates, Yes Moist Mucous Membranes, No Pharyngeal Erythema, No Rhinorrhea, No Conjuctival Injection, No Frontal Tenderness, No Maxillary Tenderness Ear: Neither TM Bulge, Neither TM Erythema, Neither EAC Pain, Neither EAC Discharge Neck: Yes Supple, No Adenopathy Lungs: Yes Good Air Exchange, No Wheezes, No Ronchi, No Stridor, No Cough, No Labored Respirations, No Retractions, No Use of Accessory Muscles, No Other Abnormal Lung Sounds Heart: Yes Regular, No Murmur Abdomen: Yes Normal Bowel Sounds, No Tenderness, No Peritoneal Signs Skin: No Rash, No Edema Neurologic: Alert and oriented, no deficits. Musculoskeletal: Unremarkable. ED Medical Decision Making - Medical Decision Making abc intact vss dc home with dc plan of care including diet, meds, activity and follow up. Pt verbalizes understanding of plan of care. Vital Signs 02/09/22 13:38 Temperature 98.9 F Pulse Rate 82 Respiratory 20 Rate Blood Pressure 123/83 [Left] O2 Sat by Pulse 100 Oximetry - Differential Diagnosis pharyngitis Critical care attestation.: If time is entered above; I have spent that time in minutes in the direct care of this critically ill patient, excluding procedure time. ED Disposition Clinical Impression: Exudative pharyngitis Disposition: 01 HOME / SELF CARE / HOMELESS Is pt being admited?: No Does the pt Need Aspirin: No Condition: Stable Instructions: Pharyngitis Additional Instructions: motrin or tylenol for pain or fever stay well hydrated with water med as ordered today until gone follow up with pcp next week referral below Prescriptions: Amoxicillin [Trimox CAP] 500 mg PO BID #20 capsule Referrals: TANYA PAREKH MD [Staff Physician] - 3-5 Days Forms: Work/School Release Form(ED) Time of Disposition: 13:41
== END 2022-02-09 13:55 | disposition home or self-care (01) ==
LOC: ED 12:46
DX: J02.9 Acute pharyngitis, unspecified (principal); F31.9 Bipolar disorder, unspecified; Z87.891 Personal history of nicotine dependence
CPT/HCPCS: 99281